=== PATIENT | male | born 2000 | race Caucasian/White ===

== ENCOUNTER 2019-04-02 20:51 | Emergency (ER) | payer OTHER, SELFPAY ==
[2019-04-02 21:02] VITALS: BP 136/76; PULSE 95; RESP 18; TEMP 39.3; O2SAT 98
--- NOTE | 2019-04-02 21:16 | ED.GENADUL_ITS ---
Discharge Plan Disposition Patient Disposition: HOME Condition: Good Discharge Details Chief Complaint: Fever Clinical Impression: Viral illness Primary Care Provider: Dalton Buitrago ED Provider: Mj Montero [place] Meds and New Rx's Prescriptions: New acetaminophen [Tylenol Extra Strength] 500 mg tablet 1,000 mg PO Q6H PRN (Reason: fever or pain) Qty: 30 RF: 0 Changed ibuprofen [Advil] 200 mg Tablet 600 mg PO Q6H PRN PRNQty: 0 RF: 0 Discharge Instructions Instructions: Lumbar Puncture (ED), Viral Syndrome (ED) Additional Instructions: You likely have a viral illness. Your spinal tap was negative for meningitis/infection. It is important that you rest and take it easy over the next few days. Drink plenty of fluids to stay hydrated. Use Motrin and/or Tylenol for fever and pain. Follow-up with primary care next week if not feeling better. Return to ED if you develop a spinal headache, increasing back pain/redness/swelling, neurologic changes, difficulty breathing, persistent vomiting, other concerns. Referrals: Dalton Buitrago [Primary Care Provider] - Medical Decision Making Patient presenting with fever. Also complains of frontal headache. He and family were concerned for heat stroke. He has normal mental status as well as normal neurologic exam. He could have heat exhaustion versus viral illness versus meningitis. He does not have a global headache nor does he have meningeal signs. However, his headache has been persistent all day. There is no myalgias, arthralgias, rash. There is no tick bites that he is aware of. We will place an IV and give 2 L of LR. We will give Tylenol for fever and headache. He has been taking Advil throughout the day. Will check laboratory studies and reevaluate. Consider lumbar puncture which I did discuss briefly with the patient and his father. Laboratory studies significant for white count of 18. Platelets are normal. Hemoglobin normal. Electrolytes and kidney function normal. Liver function essentially normal. Doubt tickborne illness given normal platelets and LFTs. Elevated white count may be related to infection. Patient continues to have headache though he does report it feels better. He continues to have normal mental status and normal neurologic exam. Continues to have no neck pain. However, he also continues to be febrile. He still looks to feel unwell. Had further discussion regarding meningitis as well as lumbar puncture. Risk and benefit of lumbar puncture discussed with patient and with his father. Patient consented to proceed with lumbar puncture to rule out meningitis. Lumbar puncture performed. Fluid obtained on first attempt. Patient tolerated procedure well. Please see separate procedure note. CSF results showed normal glucose and protein. No bacteria seen on Gram stain. 1 WBC/mm3 and no RBC seen. Patient does not have meningitis. Patient will be discharged home. He is instructed to take it easy over the next few days. He may use Tylenol or Motrin for fever and pain. He is to stay hydrated and push fluids. Follow-up with his primary care next week if he is not feeling better. Return to ED if he develops worsening headache, mental status changes, neurologic changes, increasing back pain, redness, swelling in the puncture site, spinal headache, difficulty breathing, vomiting, abdominal pain, other concerns. Lab Data Lab results reviewed: Yes I reviewed the patient's lab results. HPI General Mode of arrival: ambulatory . Date/Time Provider Initiated Documentation: 04/02/19 21:13 . Limitations to Documentation: no limitations . Information obtained by: patient and RN notes reviewed . HPI Narrative: Patient presents to ED with complaint of headache, fatigue, weakness. He also feels very hot. He thinks it is because he has been outside working all day with little hydration. However, on further questioning he felt hot last night when he went to bed. Did not take a temperature. Did not have chills. Woke up with a headache this morning. Has been present throughout the day despite Advil. Also reports mild sore throat and cough. Headache is frontal in nature. It is throbbing to some degree. He does get a lot of headaches that feels similar to this but they usually resolve with Advil. He denies difficulty breathing. He denies neck pain. He denies chest pain or abdominal pain. He denies any numbness. He feels generally weak but no focal complaints. He denies rash, myalgias, arthralgias. There have been no tick bites that he is aware of. Related Data Home Medications Medication Instructions Recorded Confirmed acetaminophen [Tylenol Extra 1,000 mg PO Q6H PRN #30 tab 04/03/19 Strength] ibuprofen [Advil] 600 mg PO Q6H PRN PRN #0 tab 04/03/19 Previous Rx's Medication Instructions Recorded acetaminophen [Tylenol Extra 1,000 mg PO Q6H PRN #30 tab 04/03/19 Strength] ibuprofen [Advil] 600 mg PO Q6H PRN PRN #0 tab 04/03/19 Allergies Allergy/AdvReac Type Severity Reaction Status Date / Time No Known Allergies Allergy Unverified 04/02/19 21:06 General Stated Complaint: Fever ANA: 3 Review of Systems Review of Systems 07/14 Review of Systems completed and is negative except as stated above in HPI (Systems reviewed: Const, Eyes, ENT, Resp, CV, GI, , MSK, Skin, Neuro) PFSH Social History Substance use type: does not use Do you feel safe at home: Yes Do you feel safe in your relationship?: Yes Exam Narrative Exam Narrative: Vitals: Febrile. Vitals otherwise normal. Const: WDWN male in NAD. HEENT: NC/AT. Normal facial exam. TMs normal bilaterally. OP normal. Eyes: Normal conjunctiva and sclera. Neck: Supple. Trachea midline. No meningeal signs. No adenopathy. Lungs: Normal respiratory effort. Lungs are clear. Cor: RRR without murmur/gallop. Good radial pulses. GI: Soft. NT/ND. No guarding or rebound. Back: No CVAT. Neuro: A+O x 3. CN II - XII in tact. Normal strength, sensation, gait, speech, mental status. Ext: No C/C/E. No deformity or tenderness. Skin: Warm and dry without rash. Course Vital Signs Temperature 102.7 F H 04/02/19 21:02 Pulse 95 H 04/02/19 21:02 Respiratory Rate 18 04/02/19 21:02 Blood Pressure 136/76 04/02/19 21:02 Pulse Oximetry 98 04/02/19 21:02 Temperature 102.7 F H 04/02/19 21:02 Temperature Source Oral 04/02/19 21:02 Pulse 95 H 04/02/19 21:02 Respiratory Rate 18 04/02/19 21:02 Blood Pressure 136/76 04/02/19 21:02 Pulse Oximetry 98 04/02/19 21:02 Oxygen Delivery Method Room Air 04/02/19 21:02 Oxygen Flow Rate 0 04/02/19 21:02 Procedures Lumbar Puncture Time Out Performed: Yes Patient Position: left lateral decubitus Skin Prep: Povidone-Iodine 1% Local Anesthetic: Lidocaine 1% Amount of anesthesia used (mL): 2 Spinal Needle Gauge: 20G Interspace Used: L4-L5 Opening Pressure (cmH20): 22 Fluid Initially Obtained: clear Complications: none
[2019-04-02] MEDS: Acetaminophen 500 MG TAB 1000 MG PO (21:35)
[2019-04-02] MEDS: Lactated Ringers 2,000 ML 1000 ML IV ×3 (21:46→23:55)
[2019-04-02 21:50] LABS: Abs Immature Grans 0.05 k/cumm (0.0-0.09); Absolute Eosinophil Count 0.04 k/cumm (0.0-0.7); Absolute Neutrophil Count 15.41 k/cumm (1.2-6.7); Basophils % 0.2; Eosinophils % 0.2; Immature Grans % 0.3; Lymphocytes % 7.3; Mean Corp. HGB Concentration 34.1 g/dL (32.0-36.0); Mean Corpuscular Hemoglobin 30.7 pg (27.0-33.0); Mean Corpuscular Volume 89.9 fL (80-95); Mean Platelet Volume 9.2 fL (8.0-11.0); Monocytes % 6.5; Neutrophils % 85.5; Platelet Count 238 x1000/uL (130-400); RBC 4.56 m/cumm (4.50-6.00); RBC Distribution Width 12.2 % (11.8-14.1); White Blood Cell Count 18.02 k/cumm (4.4-10.8)
[2019-04-02 22:01] LABS: Absolute Basophil Count 0.04 k/cumm (0.0-0.2); Absolute Lymphocyte Count 1.32 k/cumm (1.2-3.4); Absolute Monocyte Count 1.17 k/cumm (0.11-0.7)
[2019-04-02 22:12] VITALS: TEMP 38.3
[2019-04-02 22:41] LABS: ALT 56 U/L (12-78); AST 67 U/L (15-37); Albumin 4.6 g/dL (3.4-5.0); Alkaline Phosphatase 122 U/L (46-116); BUN 17 mg/dL (7-18); Bilirubin, Direct 0.09 mg/dL (0.00-0.20); Bilirubin, Total 0.6 mg/dL (0.2-1.0); CREATININE 0.99 mg/dL (0.70-1.30); Calcium 9.8 mg/dL (8.5-10.1); Chloride 103 mmol/L (98-107); Glucose 95 mg/dL (70-100); Potassium 3.6 mmol/L (3.5-5.1); Sodium 139 mmol/L (136-145); Total Protein 7.9 g/dL (6.4-8.2)
[2019-04-02 22:54] VITALS: BP 130/50; PULSE 96; RESP 18; TEMP 38.1; O2SAT 98
[2019-04-02 23:37] VITALS: BP 117/46; PULSE 92; RESP 18; TEMP 37.4; O2SAT 98
[2019-04-03 00:11] LABS: Clarity Clear; RBC 0 /mm3 (0-5); Tube # 4; WBC 1 /mm3 (0-5); Xanthochromia Absent
[2019-04-03 00:35] LABS: Glucose (CSF) 61 mg/dL (40-70); Total Protein (CSF) 28 mg/dL (15-45)
[2019-04-03 01:04] VITALS: BP 117/46; PULSE 92; RESP 18; TEMP 38; O2SAT 98
== END 2019-04-03 01:01 | disposition home or self-care (01) ==
PROVIDERS: Emergency Provider Emergency Medicine; PCP Family Medicine
DX: R50.9 Fever, unspecified (principal); R51 Headache; R53.83 Other fatigue; B34.9 Viral infection, unspecified
CPT/HCPCS: 36415; 62270; 80048; 80076; 82945; 89050; 89051; 96360; 96361; 99285; 84157; 85025; 87070; 87205; 99284

== ENCOUNTER 2019-04-09 12:44 | Outpatient (REF) | payer OTHER, SELFPAY ==
[2019-04-09 19:31] LABS: ALT 39 U/L (12-78); AST 14 U/L (15-37); Albumin 4.1 g/dL (3.4-5.0); Alkaline Phosphatase 105 U/L (46-116); Bilirubin, Total 0.2 mg/dL (0.2-1.0); Total Protein 7.9 g/dL (6.4-8.2)
[2019-04-09 19:41] LABS: Abs Immature Grans 0.05 k/cumm (0.0-0.09); HGB 14.1 g/dL (13.5-17.5); Mean Corp. HGB Concentration 33.6 g/dL (32.0-36.0); Mean Corpuscular Hemoglobin 30.5 pg (27.0-33.0); Mean Corpuscular Volume 90.7 fL (80-95); Mean Platelet Volume 9.7 fL (8.0-11.0); Platelet Count 339 x1000/uL (130-400); RBC 4.63 m/cumm (4.50-6.00); RBC Distribution Width 11.9 % (11.8-14.1); White Blood Cell Count 7.58 k/cumm (4.4-10.8)
[2019-04-09 19:49] LABS: Bilirubin, Direct 0.07 mg/dL (0.00-0.20)
[2019-04-09 21:33] LABS: Absolute Lymphocyte Count 1.59 k/cumm (1.2-3.4); Absolute Neutrophil Count 5.46 k/cumm (1.2-6.7); Atypical Lymphocytes % 3
[2019-04-09 21:34] LABS: Absolute Basophil Count 0.08 k/cumm (0.0-0.2); Absolute Eosinophil Count 0.08 k/cumm (0.0-0.7); Absolute Monocyte Count 0.38 k/cumm (0.11-0.7)
[2019-04-09 21:35] LABS: Diff Comment Manual Differential; RBC Morphology Normal
== END 2019-04-09 13:04 ==
LOC: NCHCN 12:44
PROVIDERS: PCP Family Medicine; Visit Provider Family Medicine
DX: R50.9 Fever, unspecified (principal); R74.8 Abnormal levels of other serum enzymes
CPT/HCPCS: 80076; 85025

== ENCOUNTER 2019-06-09 21:43 | Outpatient (REF) | payer SELFPAY ==
[2019-06-09 19:08] LABS: Abs Immature Grans 0.02 k/cumm (0.0-0.09); Absolute Basophil Count 0.03 k/cumm (0.0-0.2); Absolute Eosinophil Count 0.09 k/cumm (0.0-0.7); Absolute Lymphocyte Count 1.87 k/cumm (1.2-3.4); Absolute Monocyte Count 0.58 k/cumm (0.11-0.7); Absolute Neutrophil Count 2.75 k/cumm (1.2-6.7); Basophils % 0.6; Eosinophils % 1.7; HCT 42.9 % (40.0-50.0); HGB 14.3 g/dL (13.5-17.5); Immature Grans % 0.4; Mean Corp. HGB Concentration 33.3 g/dL (32.0-36.0); Mean Corpuscular Hemoglobin 30.4 pg (27.0-33.0); Mean Corpuscular Volume 91.3 fL (80-95); Mean Platelet Volume 10.3 fL (8.0-11.0); Monocytes % 10.9; Neutrophils % 51.4; Platelet Count 256 x1000/uL (130-400); RBC Distribution Width 12.5 % (11.8-14.1); White Blood Cell Count 5.34 k/cumm (4.4-10.8)
[2019-06-09 19:18] LABS: ALT 24 U/L (16-63); AST 13 U/L (15-37); Albumin 4.3 g/dL (3.4-5.0); Alkaline Phosphatase 95 U/L (46-116); Bilirubin, Direct 0.08 mg/dL (0.00-0.20); Bilirubin, Total 0.4 mg/dL (0.2-1.0); Total Protein 7.6 g/dL (6.4-8.2)
[2019-06-11 09:35] LABS: Hepatitis B Surface Ag Negative (NEGAT)
[2019-06-11 10:41] LABS: HIV-1/2 Ag & Ab Screen Negative (NEGAT)
[2019-06-11 11:43] LABS: Syphilis Serology (RPR) Negative (Negative)
[2019-06-11 12:33] LABS: Chlamydia Result Negative; GC Result Negative; Specimen Description URINE
== END 2019-06-09 22:03 ==
LOC: NCHCN 21:43
PROVIDERS: PCP Family Medicine; Visit Provider Family Medicine
DX: Z00.00 Encounter for general adult medical examination without abnormal findings (principal); Z11.3 Encounter for screening for infections with a predominantly sexual mode of transmission; Z11.59 Encounter for screening for other viral diseases; Z11.4 Encounter for screening for human immunodeficiency virus [HIV]; R50.9 Fever, unspecified; R74.8 Abnormal levels of other serum enzymes
CPT/HCPCS: 80076; 87340; 87389; 87491; 87591; 85025; 86592